=== PATIENT | male | born 1975 | race Caucasian/White ===

== ENCOUNTER 2023-04-10 10:24 | Emergency (ER) | payer MEDICAID ==
[~2023-04-10] VITALS: Ht 182.9 cm; Wt 81.6 kg
--- NOTE | 2023-04-10 10:25 | NUR ---
PT BIBA AWAKE AND ALERT AOX4. NO SOB. PT WAS PICKED UP BY [facility] BECAUSE SOMEONE CALLED 911 WHILE HE WAS LYING IN THE STREETS. PT DENIES PAIN, N/V/D. PT DENIES HX AND SX. PT IS HOMELESS AND REQUEST REFFERAL TO HOMELESS [facility]. PT STATES HE FEELS A LITTLE SHAKY. Addendum: 04/10/23 at 1106 by [facility] [employer] STATED PT WAS FOUND WITH A EMPTY BOTTLE OF VODKA 750ML. PT STATED HE DRANK THE VODKA TODAY. PT STATED HE USES CR[facility] METH, BUT THE LAST TIME WAS 1 MONTH AGO.
--- NOTE | 2023-04-10 10:27 | NUR ---
MD DR WITT AT BEDSIDE
[2023-04-10 10:32] VITALS: BP_SYST 132; PULSE 70; RESP 18; TEMP 97.3; O2SAT 99
[2023-04-10 10:54] LABS: BASOPHILS # (AUTO) 0.1 K/uL (0.0-0.2); BASOPHILS % (AUTO) 1.2 % (0.0-2.0); EOSINOPHILS # (AUTO) 0.2 K/uL (0.0-0.4); EOSINOPHILS % (AUTO) 2.7 % (0.0-4.0); HEMATOCRIT 40.6 % (36-54); HEMOGLOBIN 13.4 g/dL (14.0-18.0); LYMPHOCYTES # (AUTO) 2.5 K/uL (1.0-5.5); MEAN CORPUSCULAR HEMOGLOBIN 31 pg (27-31); MEAN CORPUSCULAR HGB CONC 33 % (32-36); MEAN CORPUSCULAR VOLUME 94 fL (79.0-98.0); MONOCYTES # (AUTO) 0.2 K/uL (0.0-1.0); MONOCYTES % (AUTO) 3.7 % (1.7-9.3); NEUTROPHILS % (AUTO) 50.4 % (40.0-70.0); PLATELET COUNT (AUTO) 203 K/uL (130-430); RED BLOOD CELL COUNT(AUTO) 4.32 MIL/uL (4.2-6.2); RED CELL DISTRIBUTION WIDTH 14.5 % (9.0-15.0); WHITE BLOOD COUNT (AUTO) 5.9 K/uL (4.8-10.8)
[2023-04-10 11:05] LABS: ANION GAP 5 (5-15); CALCIUM 8.1 mg/dL (8.4-11.0); CHLORIDE 106 mmol/L (98-107); CREATININE 0.71 mg/dL (0.55-1.30); GFR AFRICAN AMERICAN 152 mL/min (>90); GLUCOSE 106 mg/dL (74-106); UREA NITROGEN, BLOOD 9 mg/dL (8-21)
[2023-04-10 11:08] LABS: ACETONE, SERUM NEGATIVE (NEGATIVE)
[2023-04-10 11:24] LABS: ALANINE AMINOTRANSFERASE 37 U/L (12-78); ALBUMIN 3.8 g/dL (3.4-4.8); AMYLASE 107 U/L (0-100); ASPARTATE AMINOTRANSFERASE 46 U/L (10-37); LIPASE 454 U/L (73-393); TOTAL BILIRUBIN 0.3 mg/dL (0.0-1.0)
[2023-04-10 11:26] LABS: ALCOHOL, BLOOD 422 mg/dL (<10)
--- NOTE | 2023-04-10 11:29 | NUR ---
PT STATED HE WANTS TO LEAVE AMA. PT IS AOX4, NO SOB OR DISTRESS. PT DENIES PAIN. PT IS AMBULATORY BY SELF, WITHOUT ASSISTANCE. PT WAS COMPATENT AND AWARE OF DANGERS OF LEAVING AMA. MD DR WITT AND MYSELF CONFIRMED HE UNDERSTOOD THE RISK OF LEAVING AMA, WITH POSSIBILITY OF DISABILITY AND EVEN . PT WAS GIVEN FOOD IN ER AND FINISHED FOOD WITHOUT ASSTANCE. PT DID NOT WANT TO GET HELP FROM [employer] FOR DETENTION PLACEMENT. PT DID NOT EXPRESS DESIRE TO HURT HIMSELF OR OTHERS.
[2023-04-10 11:31] LABS: PROTHROMBIN TIME 9.9 SECS (9.5-12.5)
--- NOTE | 2023-04-10 11:37 | NUR ---
Patient does not wish to proceed with medical care recommended by DR WITT. Patient given information related to possible complications, up to and including , which could occur as a result of leaving hospital at this time. Patient verbalizes understanding of risks involved leaving against medical advice. Patient has signed AMA form.
[2023-04-10 17:18] VITALS: BP_SYST 132; PULSE 74; RESP 18; TEMP 97.3; O2SAT 97
== END 2023-04-10 17:58 | disposition left against medical advice (07) ==
LOC: SED 10:24
DX: F10.129 Alcohol abuse with intoxication, unspecified (principal); Z79.899 Other long term (current) drug therapy; Y90.6 Blood alcohol level of 120-199 mg/100 ml
CPT/HCPCS: 99283; 80053; 82009; 82140; 82150; 83690; 85025; 85610; 85730; 36415; 83605; G0482